=== PATIENT | female | born 1990 | race Caucasian/White ===

== ENCOUNTER → 2020-11-17 | Outpatient (CLI) | payer OTHER | LOC: HYPER 08:26 | PROVIDERS: ATTEND Emergency Medicine Emergency Medical Services | DX: T81.49XA Infection following a procedure, other surgical site, initial encounter (principal); L98.492 Non-pressure chronic ulcer of skin of other sites with fat layer exposed; B95.61 Methicillin susceptible Staphylococcus aureus infection as the cause of diseases classified elsewhere; E03.9 Hypothyroidism, unspecified; E66.9 Obesity, unspecified; G89.18 Other acute postprocedural pain; M32.8 Other forms of systemic lupus erythematosus; M35.00 Sjogren syndrome, unspecified; F32.9 Major depressive disorder, single episode, unspecified; F41.9 Anxiety disorder, unspecified; Z86.14 Personal history of Methicillin resistant Staphylococcus aureus infection; Z68.41 Body mass index [BMI] 40.0-44.9, adult; Z98.890 Other specified postprocedural states; Y92.238 Other place in hospital as the place of occurrence of the external cause; Y83.8 Other surgical procedures as the cause of abnormal reaction of the patient, or of later complication, without mention of misadventure at the time of the procedure ==

== ENCOUNTER → 2020-11-24 | Outpatient (CLI) | payer OTHER | LOC: HYPER 12:50 | PROVIDERS: ATTEND Emergency Medicine | DX: T81.40XD Infection following a procedure, unspecified, subsequent encounter (principal); L98.492 Non-pressure chronic ulcer of skin of other sites with fat layer exposed; B95.61 Methicillin susceptible Staphylococcus aureus infection as the cause of diseases classified elsewhere; M32.8 Other forms of systemic lupus erythematosus; G89.18 Other acute postprocedural pain; D64.89 Other specified anemias; M35.00 Sjogren syndrome, unspecified; E66.9 Obesity, unspecified; F32.9 Major depressive disorder, single episode, unspecified; F41.9 Anxiety disorder, unspecified; Z68.41 Body mass index [BMI] 40.0-44.9, adult; Z86.14 Personal history of Methicillin resistant Staphylococcus aureus infection; Z79.01 Long term (current) use of anticoagulants; Y83.8 Other surgical procedures as the cause of abnormal reaction of the patient, or of later complication, without mention of misadventure at the time of the procedure ==

== ENCOUNTER → 2020-12-01 | Outpatient (CLI) | payer OTHER | LOC: HYPER 09:36 | PROVIDERS: ATTEND Emergency Medicine | DX: T81.49XD Infection following a procedure, other surgical site, subsequent encounter (principal); L98.492 Non-pressure chronic ulcer of skin of other sites with fat layer exposed; B95.61 Methicillin susceptible Staphylococcus aureus infection as the cause of diseases classified elsewhere; M32.8 Other forms of systemic lupus erythematosus; G89.18 Other acute postprocedural pain; D64.89 Other specified anemias; M35.00 Sjogren syndrome, unspecified; E66.9 Obesity, unspecified; F32.9 Major depressive disorder, single episode, unspecified; F41.9 Anxiety disorder, unspecified; Z68.41 Body mass index [BMI] 40.0-44.9, adult; Z86.14 Personal history of Methicillin resistant Staphylococcus aureus infection; Z79.01 Long term (current) use of anticoagulants; Z98.890 Other specified postprocedural states; Y83.8 Other surgical procedures as the cause of abnormal reaction of the patient, or of later complication, without mention of misadventure at the time of the procedure ==